=== PATIENT | female | born 1940 | race Hispanic/Latino ===

== ENCOUNTER 2022-07-30 11:42 | Emergency (ER) | payer MEDICARE ==
[~2022-07-30] VITALS: Ht 160 cm; Wt 61.2 kg
[2022-07-30] MEDS ORDERED: AFRIN15 ML INH (13:13)
== END 2022-07-30 13:24 | disposition home or self-care (01) ==
LOC: ER 11:48
DX: R04.0 Epistaxis (principal); J33.9 Nasal polyp, unspecified; I10 Essential (primary) hypertension
CPT/HCPCS: 99282